=== PATIENT | female | born 1960 | race Two or more races ===

== ENCOUNTER 2018-12-19 06:39 | Outpatient (CLI) | payer OTHER ==
[~2018-12-19 06:39] MED LIST: AMLODIPINE-OLM1 EAC1; COZAAR25 MG; COZAAR50 MG; GLIPIZIDE ER5 MG PO; METFORMIN HCL1000 M2 PO; ZOCOR40 MG
== END 2018-12-19 06:43 | disposition home or self-care (01) ==
LOC: LAB 06:39
DX: I10 Essential (primary) hypertension (principal); E78.2 Mixed hyperlipidemia; E11.65 Type 2 diabetes mellitus with hyperglycemia; E03.8 Other specified hypothyroidism; E55.9 Vitamin D deficiency, unspecified; Z12.11 Encounter for screening for malignant neoplasm of colon

== ENCOUNTER 2018-12-20 14:53 | Outpatient (CLI) | payer OTHER | END 2018-12-20 15:11 | disposition home or self-care (01) | LOC: LAB 14:53 | DX: I10 Essential (primary) hypertension (principal); E78.2 Mixed hyperlipidemia; E11.65 Type 2 diabetes mellitus with hyperglycemia; E03.8 Other specified hypothyroidism; E55.9 Vitamin D deficiency, unspecified; Z12.11 Encounter for screening for malignant neoplasm of colon ==

== ENCOUNTER 2019-04-12 07:24 | Outpatient (CLI) | payer OTHER | END 2019-04-12 15:00 | disposition home or self-care (01) | LOC: LAB 07:24 | DX: E78.49 Other hyperlipidemia (principal); R42 Dizziness and giddiness; Z00.00 Encounter for general adult medical examination without abnormal findings ==

== ENCOUNTER 2019-07-17 07:01 | Outpatient (CLI) | payer OTHER | END 2019-07-17 15:12 | disposition home or self-care (01) | LOC: LAB 07:01 | DX: Z00.00 Encounter for general adult medical examination without abnormal findings (principal); E78.49 Other hyperlipidemia; E55.9 Vitamin D deficiency, unspecified; E03.8 Other specified hypothyroidism; I10 Essential (primary) hypertension ==

== ENCOUNTER → 2019-11-08 | Outpatient (CLI) | payer OTHER | END | disposition home or self-care (01) | LOC: SONOGRAMA 08:30 → MAMO-SONO 10:15 | DX: R10.2 Pelvic and perineal pain (principal) ==

== ENCOUNTER 2020-02-25 10:30 | Outpatient (CLI) | payer OTHER | END 2020-02-25 10:33 | disposition home or self-care (01) | LOC: MAMO-SONO 10:30 | DX: Z12.31 Encounter for screening mammogram for malignant neoplasm of breast (principal); N64.4 Mastodynia ==

== ENCOUNTER 2020-08-10 08:00 | Outpatient (CLI) | payer OTHER | END 2020-08-10 15:00 | disposition home or self-care (01) | LOC: PPH VACUNA 08:00 | DX: Z23 Encounter for immunization (principal) ==

== ENCOUNTER → 2020-10-18 | Emergency (ER) | payer OTHER ==
[~2020-10-18] VITALS: Ht 157.5 cm; Wt 79.4 kg
== END | disposition home or self-care (01) ==
LOC: ER 08:30
DX: U07.1 COVID-19 (principal); B34.9 Viral infection, unspecified

== ENCOUNTER 2021-01-21 17:13 | Emergency (ER) | payer OTHER ==
[~2021-01-21] VITALS: Ht 160 cm; Wt 79.4 kg
[2021-01-21] MEDS ORDERED: NOVOLIN 70100 UNIT/2 (17:30)
[2021-01-21] MEDS ORDERED: CIPRO500 MG PO (17:48)
== END 2021-01-21 18:11 | disposition home or self-care (01) ==
LOC: ER 17:13
DX: S91.331A Puncture wound without foreign body, right foot, initial encounter (principal); W45.0XXA Nail entering through skin, initial encounter; Y93.01 Activity, walking, marching and hiking; Y92.89 Other specified places as the place of occurrence of the external cause; Y99.8 Other external cause status

== ENCOUNTER 2021-02-17 10:13 | Outpatient (CLI) | payer OTHER ==
[~2021-02-17 10:13] MED LIST changes: +CIPRO500 MG PO; +NOVOLIN 70100 UNIT/2
== END 2021-02-17 10:14 | disposition home or self-care (01) ==
LOC: PPH VACUNA 10:13
DX: Z23 Encounter for immunization (principal)

== ENCOUNTER 2021-02-28 11:00 | Outpatient (CLI) | payer OTHER | END 2021-02-28 11:02 | disposition home or self-care (01) | LOC: NUCLEAR 11:00 | PROVIDERS: ATTEND Podiatrist Foot Surgery | DX: I70.213 Atherosclerosis of native arteries of extremities with intermittent claudication, bilateral legs (principal) ==

== ENCOUNTER → 2021-03-23 | Emergency (ER) | payer OTHER ==
[~2021-03-23] VITALS: Ht 160 cm; Wt 78.9 kg
== END | disposition home or self-care (01) ==
LOC: ER 13:54
DX: M79.672 Pain in left foot (principal)

== ENCOUNTER → 2021-03-29 11:12 | Outpatient (CLI) | payer OTHER | END | disposition home or self-care (01) | LOC: LAB 11:12 | PROVIDERS: ATTEND General Practice | DX: E78.49 Other hyperlipidemia (principal); E55.9 Vitamin D deficiency, unspecified; Z00.00 Encounter for general adult medical examination without abnormal findings; N39.0 Urinary tract infection, site not specified; E11.9 Type 2 diabetes mellitus without complications; R42 Dizziness and giddiness ==

== ENCOUNTER 2021-03-29 11:55 | Outpatient (CLI) | payer OTHER | END 2021-03-29 11:59 | disposition home or self-care (01) | LOC: MAMO-SONO 11:55 | PROVIDERS: ATTEND General Practice | DX: N64.4 Mastodynia (principal) ==

== ENCOUNTER 2021-09-12 10:53 | Outpatient (CLI) | payer OTHER | END 2021-09-12 15:44 | disposition home or self-care (01) | LOC: LAB 10:53 | PROVIDERS: ATTEND Internal Medicine Cardiovascular Disease | DX: E11.9 Type 2 diabetes mellitus without complications (principal); E03.8 Other specified hypothyroidism; E78.2 Mixed hyperlipidemia; I10 Essential (primary) hypertension ==

== ENCOUNTER 2021-11-14 07:40 | Outpatient (CLI) | payer OTHER | END 2021-11-14 08:00 | disposition home or self-care (01) | LOC: PPH VACUNA 07:40 | PROVIDERS: ATTEND Emergency Medicine Pediatric Emergency Medicine | DX: Z23 Encounter for immunization (principal) ==

== ENCOUNTER 2022-01-06 07:40 | Outpatient (CLI) | payer OTHER | END 2022-01-06 07:47 | disposition home or self-care (01) | LOC: LAB 07:40 | PROVIDERS: ATTEND Obstetrics & Gynecology | DX: Z00.00 Encounter for general adult medical examination without abnormal findings (principal); I10 Essential (primary) hypertension; E03.9 Hypothyroidism, unspecified; E78.00 Pure hypercholesterolemia, unspecified; N39.0 Urinary tract infection, site not specified; Z11.4 Encounter for screening for human immunodeficiency virus [HIV]; Z12.11 Encounter for screening for malignant neoplasm of colon; E55.9 Vitamin D deficiency, unspecified; Z21 Asymptomatic human immunodeficiency virus [HIV] infection status; R79.9 Abnormal finding of blood chemistry, unspecified; R79.89 Other specified abnormal findings of blood chemistry ==

== ENCOUNTER 2022-05-15 07:48 | Outpatient (CLI) | payer OTHER | END 2022-05-15 07:50 | disposition home or self-care (01) | LOC: LAB 07:48 | PROVIDERS: ATTEND Internal Medicine Cardiovascular Disease | DX: I10 Essential (primary) hypertension (principal); E11.9 Type 2 diabetes mellitus without complications; E03.9 Hypothyroidism, unspecified; E78.2 Mixed hyperlipidemia ==

== ENCOUNTER 2022-05-26 12:07 | Outpatient (CLI) | payer OTHER | END 2022-05-26 12:12 | disposition home or self-care (01) | LOC: MAMO-SONO 12:07 | PROVIDERS: ATTEND Internal Medicine Cardiovascular Disease | DX: N63.11 Unspecified lump in the right breast, upper outer quadrant (principal) ==

== ENCOUNTER 2022-06-14 09:16 | Outpatient (CLI) | payer OTHER | END 2022-06-14 09:19 | disposition home or self-care (01) | LOC: NUCLEAR 09:16 | PROVIDERS: ATTEND Internal Medicine | DX: I70.213 Atherosclerosis of native arteries of extremities with intermittent claudication, bilateral legs (principal); I11.9 Hypertensive heart disease without heart failure; I10 Essential (primary) hypertension; E78.5 Hyperlipidemia, unspecified; E11.51 Type 2 diabetes mellitus with diabetic peripheral angiopathy without gangrene; I87.2 Venous insufficiency (chronic) (peripheral) ==

== ENCOUNTER 2022-07-25 09:47 | Emergency (ER) | payer OTHER ==
[~2022-07-25] VITALS: Ht 157.5 cm; Wt 75.7 kg
[2022-07-25] MEDS ORDERED: SYNTHROID75 MCG PO (10:12)
[2022-07-25] MEDS ORDERED: PLAVIX75 MG PO (10:12)
[2022-07-25] MEDS ORDERED: CAPSAICIN42.5 GM TOP (10:36)
[2022-07-25] MEDS ORDERED: ZOVIRAX800 MG PO (10:36)
== END 2022-07-25 10:57 | disposition home or self-care (01) ==
LOC: ER 09:47
DX: B02.9 Zoster without complications (principal)

== ENCOUNTER 2022-08-17 10:01 | Outpatient (CLI) | payer OTHER ==
[~2022-08-17 10:01] MED LIST changes: +CAPSAICIN42.5 GM TOP; +PLAVIX75 MG PO; +SYNTHROID75 MCG PO; +ZOVIRAX800 MG PO
== END 2022-08-17 10:08 | disposition home or self-care (01) ==
LOC: LAB 10:01
PROVIDERS: ATTEND General Practice
DX: E11.9 Type 2 diabetes mellitus without complications (principal); I10 Essential (primary) hypertension; E03.9 Hypothyroidism, unspecified